=== PATIENT | female | born 1985 | race Caucasian/White ===

== ENCOUNTER 2017-02-26 13:55 | Emergency (ER) | payer OTHER ==
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
[~2017-02-26 13:55] MED LIST: BACTRIM DS TABL1 TA1 PO; DIAZEPAM10 MG PO; DIMETAPP COLD237 ML PO; E-MYCIN250 MG PO; IBUPROFEN PO; IBUPROFEN800 MG PO; KEFLEX PO; LEVAQUIN PO; LORTAB 101 TAB 10/5 PO; LORTAB 7.5-5001 TAB PO; MOTRIN600 M1 PO; NAPROSYN500 MG PO; NO MEDICATIONS; PAXIL PO; PREDNISONE10 MG/DOSE PO; PRENATAL1 TA1 PO; PROMETHAZINE W118 M1 PO; PROVERA10 MG PO; VALIUM10 MG PO; VICODIN PO; XANAX0.5 M1
== END 2017-02-26 15:35 | disposition home or self-care (01) ==
LOC: SED 13:55
DX: S83.91XA Sprain of unspecified site of right knee, initial encounter (principal); F17.200 Nicotine dependence, unspecified, uncomplicated; X58.XXXA Exposure to other specified factors, initial encounter; Y92.9 Unspecified place or not applicable
CPT/HCPCS: 29505; 73562; 99283

== ENCOUNTER 2017-04-17 17:25 | Emergency (ER) | payer OTHER ==
[2017-04-18] MEDS ORDERED: NO MEDICATIONS (04:09)
== END 2017-04-17 18:15 | disposition left against medical advice (07) ==
LOC: CED 17:25
DX: Z53.21 Procedure and treatment not carried out due to patient leaving prior to being seen by health care provider (principal)
CPT/HCPCS: J1170; J1200; J3010

== ENCOUNTER 2017-04-17 21:19 | Observation (INO) | payer OTHER ==
--- NOTE | ~2017-04-17 | EKG ---
PATIENT: VALERI CACERES UNIT #: [id number] Ventricular Rate: 58 BPM Atrial Rate: 58 BPM P-R Interval: 124 ms QRS Duration: 90 ms Q-T Interval: 422 ms QTC Calculation(Bezet): 414 ms P [place]: 45 degrees Calculated R [place]: 52 degrees Calculated T [place]: 42 degrees Diagnosis Line: Sinus bradycardia Diagnosis Line: Otherwise normal ECG Diagnosis Line: When compared with ECG of 11-OCT-2016 15:05, Diagnosis Line: No significant change was found Diagnosis Line: Confirmed by NELSON FERNÁNDEZ MD ([id number]) on 04/18/2017 Diagnosis Line: 8:37:26 PM INTERPRETING MD: JOLENE MCNEAL
--- NOTE | ~2017-04-17 | OR ---
Unit #: [id number] #: [id number] Patient: VALERI CACERES [id number] [facility] [address]. [place], [place] [address] [id number] I MR#: [id number] NAME: VALERI CACERES ROOM: 456 Date of Procedure: 04/18/2017 Admission Date: 04/18/2017 Surgeon: Xavier Hendricks M.D. : 1985 Attending Physician: Xavier Hendricks M.D. Primary Care Physician: Vlad Vega M.D. OPERATIVE REPORT PREOPERATIVE DIAGNOSIS Acute cholecystitis. POSTOPERATIVE DIAGNOSIS Hydrops of the gallbladder. PROCEDURE PERFORMED Laparoscopic cholecystectomy. ANESTHESIA General endotracheal anesthesia. ESTIMATED BLOOD LOSS 20 mL. INDICATIONS FOR PROCEDURE Ms. Caceres is a 31-year-old female, who presented to the ER with right upper quadrant pain and was found to have acute cholecystitis. She was admitted and started on IV antibiotics and scheduled for surgery today. Preoperative liver chemistries were normal. DESCRIPTION OF PROCEDURE The patient was admitted to [facility], positively identified, and transported from her hospital room to the operating room, and after induction of general endotracheal anesthesia, she was prepped and draped in usual sterile fashion. A 5-mm supraumbilical incision was made. Veress needle was placed. Pneumoperitoneum was created. Then, a 5-mm trocar was placed. Laparoscope was introduced into the peritoneal cavity. Under direct vision, the epigastric and lateral ports were placed. The gallbladder was markedly distended and inflamed, but there was no gangrene. It was quite intrahepatic; however, the gallbladder was grasped and elevated. The infundibulum was identified and retracted laterally and the triangle of Calot was dissected out clearly identifying the cystic duct, gallbladder, and cystic duct-common duct junction. A single clip was placed in the cystic duct centered to gallbladder and three clips were placed distally and the cystic duct was sharply divided. Posteriorly, the cystic artery was dissected free from the right hepatic. It was doubly clipped proximally and distally and divided. I then dissected the gallbladder out of the liver bed and it was a difficult dissection, because the gallbladder was quite intrahepatic, but I was able to dissected out without spillage of bile or stones. The gallbladder was placed into an EndoCatch bag and brought out through the epigastric port. Unit #: [id number] #: [id number] Patient: VALERI CACERES On evaluating the gallbladder Ex Vivo, there was hydrops of the gallbladder. There was adequate hemostasis. The clips were well positioned. The epigastric fascial defect was closed with the neoClose device and the closure was airtight. I then reduced the pneumoperitoneum as I removed the laparoscope and trocars. 0.5% Marcaine with epinephrine was infiltrated into each trocar site. The skin was closed with 4-0 Monocryl subcuticular closure and Dermabond skin adhesive. Sponges and needle counts were correct x3. The patient tolerated the procedure well and was transported to recovery in stable condition. There was no family available to discuss the findings with after surgery. Dictated by... Odalys Carter/miller TD: 04/18/2017 19:22 JOB #: [id number] OPERATIVE REPORT Page 1 of 1 X Xavier Hendricks MD PROCEDURE OPERATIVE NOTE
--- NOTE | ~2017-04-17 | CT2 ---
[facility] A Service of [facility] RADIOLOGY TEXT RESULTS PATIENT: VALERI CACERES LOCATION: [facility] 456-01 : 83 UNIT #: [id number] AGE: [address]: Xavier Hendricks MD SEX: F ORDER DR: [id number] [place] [id number] I MR#: [id number] Acc #: [id number] NAME: VALERI CACERES : 1985 SEX: F STUDY DATE/TIME: 04/17/2017 23:00 UNIT: SEDOF ROOM: [id number] STUDY DESCRIPTION: CT Abd and Pelv W Cont Attending Physician: Xavier Hendricks M.D. Ordering Physician: Jaime Ruth P.A.-C. Primary Care Physician: Vlad Vega M.D. MEDICAL IMAGING REPORT This report is preliminary unless electronic signature is present. EXAM CT abdomen and pelvis with contrast INDICATION Right upper quadrant abdominal and right flank pain for the past 3 days. PROCEDURE Contrast-enhanced CT of the abdomen and pelvis. This CT exam was performed with one or more of the following radiation dose reduction techniques: automatic exposure control, adjustment of mA and/or kV according to patient size, and iterative reconstruction. COMPARISON 06/13/2010 FINDINGS ABDOMEN WITH CONTRAST: Included lung bases clear. There are a few stones in the gallbladder, including a 1.8 cm stone at the neck of the gallbladder. There is mild gallbladder wall thickening and a trace amount of pericholecystic fluid. No common duct dilation. The spleen, kidneys, adrenal glands, pancreas are unremarkable. Bowel loops are nondilated. Moderate colonic stool. Normal appendix. There is no hydronephrosis. PELVIS WITH CONTRAST: No pelvic mass or fluid. No aggressive-appearing bone lesion. IMPRESSION Suspected early or mild acute cholecystitis. There are several stones in [facility] A Service of [facility] RADIOLOGY TEXT RESULTS PATIENT: VALERI CACERES LOCATION: C4 456-01 : 83 UNIT #: [id number] AGE: [address]: Xavier Hendricks MD SEX: F ORDER DR: the gallbladder including a 1.8 cm stone in the neck of the gallbladder. Dictated by... Reynaldo Saleh M.D. THIS IS AN ELECTRONICALLY VERIFIED REPORT Reynaldo Saleh M.D. at 04/18/2017 10:25 PM EED/lisa TD: 04/18/2017 01:14 JOB #: [id number] MEDICAL IMAGING REPORT Page 1 of 1
--- NOTE | ~2017-04-17 | DS ---
Unit #: [id number] #: [id number] Patient: VALERI CACERES [id number] [address] [address] [id number] I MR#: [id number] NAME: VALERI CACERES ROOM: 456 Age: 31 Sex: F Admission Date: 04/18/2017 : 1985 Discharge Date: 04/19/2017 Attending Physician: Xavier Hendricks M.D. Primary Care Physician: Vlad Vega M.D. DISCHARGE SUMMARY HISTORY/HOSPITAL COURSE Ms. Caceres is a 31-year-old female with known cholelithiasis. She presented to the emergency room with increasing right upper quadrant pain radiating to the back. Radiologic evaluation was consistent with early acute cholecystitis. She was admitted to the hospital and started on IV antibiotics. The following morning she was taken to the operating room, where she underwent an uncomplicated laparoscopic cholecystectomy. She is hemodynamically stable postoperatively and her laboratories are unremarkable. Her abdomen is soft and has just the expected postoperative tenderness. DISCHARGE INSTRUCTIONS 1. The patient will be able to be discharge home in stable condition today. 2. She can undergo diet and activity as tolerated. 3. She may shower. 4. Use a laxative as needed. 5. She is to call the office at [phone] for a follow-up appointment. 6. A prescription for Tramadol was left for postoperative pain control. 7. I also completed her medical appointment verification certificate as required by the administrative office at the courts because the patient is in court ordered drug rehab. The patient understood these instructions and will be discharged home in stable condition. Dictated by... Odalys Carter/pamela TD: 04/19/2017 12:24 JOB #: [id number] Unit #: [id number] #: [id number] Patient: VALERI CACERES DISCHARGE SUMMARY Page 1 of 1 X Xavier Hendricks MD DISCHARGE SUMMARY
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
[2017-04-17 22:24] LABS: URINE SOURCE CLEAN CATCH
[2017-04-17 22:27] LABS: URINE APPEARANCE HAZY; URINE BILIRUBIN NEG (NEG); URINE BLOOD NEG (NEG); URINE COLOR YELLOW; URINE GLUCOSE NEG (NORM); URINE KETONE NEG (NEG); URINE LEUKOCYTE ESTERASE NEG (NEG); URINE NITRATE NEG (NEG); URINE PH 7.5 (5-8); URINE PROTEIN NEG (NEG); URINE UROBILINOGEN 0.2 MG/DL (NORM)
[2017-04-17 22:29] LABS: BASOPHIL# 0.1 X10e3 (0-0.3); BASOPHIL% 0.8 % (0-2.5); EOSINOPHIL# 0.1 X10e3 (0-0.7); EOSINOPHIL% 0.8 % (0.0-7.0); HEMATOCRIT 42.8 % (35.0-45.0); HEMOGLOBIN 14.3 gm/dL (12.0-16.0); LYMPHOCYTE# 3.1 X10e3 (1.0-3.5); LYMPHOCYTE% 21.8 % (17.0-45.0); MEAN CELL VOLUME 85.3 FL (83-96); MEAN CORPUSCULAR HEMOGLOBIN 28.5 PG (28-34); MEAN CORPUSCULAR HGB CONC 33.3 g/dL (30-36); MEAN PLATELET VOLUME 10.1 FL (6.5-11.5); MICRO INDICATED? NO; MONOCYTE# 0.7 X10e3 (0-1.0); NEUTROPHIL# 10.3 X10e3 (1.5-7.1); NEUTROPHIL% 71.6 % (40-75); PLATELET COUNT 251 X10e3 (140-420); RED BLOOD COUNT 5.01 X10e (3.90-5.30); RED CELL DISTRIBUTION WIDTH 14.9 % (11.0-15.5); WHITE BLOOD COUNT 14.4 X10e3 (4.0-10.5)
[2017-04-17 22:32] LABS: DIFF IND NO
[2017-04-17 22:37] LABS: AMPHETAMINE NEG (NEG); BARBITURATES NEG (NEG); BENZODIAZEPINES NEG (NEG); COCAINE NEG (NEG); MARIJUANA NEG (NEG); OPIATES NEG (NEG); TRICYCLIC ANTIDEPRESSANTS NEG (NEG); U METHADONE NEG (NEG)
[2017-04-17 22:45] LABS: ALKALINE PHOSPHATASE 71 U/L (32-92); ALT (SGPT) 16 U/L (10-40); AST (SGOT) 18 U/L (10-42); BILIRUBIN, DIRECT <0.1 mg/dL (0.0-0.2); BILIRUBIN,INDIRECT 0.5 mg/dL (0.0-0.9); BILIRUBIN,TOTAL 0.6 mg/dL (0.2-2.0); BLOOD UREA NITROGEN 11 mg/dL (9-23); BUN/CREATININE RATIO 18.33; CALCIUM SERUM 9.1 mg/dL (8.4-10.2); CARBON DIOXIDE 27 mmol/L (22-31); CHLORIDE 102 mmol/L (100-111); CREATININE SERUM 0.6 mg/dL (0.6-1.4); GLOM FILT RATE Estimated 119.8 mL/min (>60); GLUCOSE FASTING 101 mg/dL (70-110); LIPASE 36 U/L (22-51); POTASSIUM 4.1 mmol/L (3.5-5.1); PROTEIN TOTAL SERUM 7.4 g/dL (6.0-8.3); SODIUM 137 mmol/L (135-145)
[2017-04-18] MEDS ORDERED: NO MEDICATIONS (04:09)
[2017-04-19 03:20] LABS: HEMATOCRIT 41.2 % (35.0-45.0); HEMOGLOBIN 13.5 gm/dL (12.0-16.0); MEAN CELL VOLUME 86.4 FL (83-96); MEAN CORPUSCULAR HEMOGLOBIN 28.4 PG (28-34); MEAN CORPUSCULAR HGB CONC 32.9 g/dL (30-36); MEAN PLATELET VOLUME 10.6 FL (6.5-11.5); RED BLOOD COUNT 4.77 X10e (3.90-5.30); WHITE BLOOD COUNT 12.9 X10e3 (4.0-10.5)
[2017-04-19 03:45] LABS: ALBUMIN SERUM 3.5 g/dL (3.5-5.0); BILIRUBIN,TOTAL 0.4 mg/dL (0.2-2.0); BUN/CREATININE RATIO 22.85; CALCIUM SERUM 8.8 mg/dL (8.4-10.2); CREATININE SERUM 0.7 mg/dL (0.6-1.4); GLOM FILT RATE Estimated 113.8 mL/min (>60); POTASSIUM 4.4 mmol/L (3.5-5.1); PROTEIN TOTAL SERUM 6.3 g/dL (6.0-8.3)
[2017-04-19] MEDS ORDERED: ULTRAM PO (10:46)
== END 2017-04-19 13:54 | disposition home or self-care (01) ==
LOC: SED 21:19 → C4B 04-18 00:23 → SEDOF 04-18 00:23 → SED 04-18 00:23 → C4B 04-18 02:28 → SEDOF 04-18 03:10 → C4B 04-19 13:54
PROVIDERS: Physician Assistant; Specialist
PROC: 0FT44ZZ Resection of Gallbladder, Percutaneous Endoscopic Approach (ICD-10-PCS; principal; 2017-04-18 11:00)
DX: K80.10 Calculus of gallbladder with chronic cholecystitis without obstruction (principal); K82.1 Hydrops of gallbladder; F17.200 Nicotine dependence, unspecified, uncomplicated; B19.20 Unspecified viral hepatitis C without hepatic coma; Z79.899 Other long term (current) drug therapy; G83.34 Monoplegia, unspecified affecting left nondominant side; Z86.73 Personal history of transient ischemic attack (TIA), and cerebral infarction without residual deficits; Z87.898 Personal history of other specified conditions; Z88.1 Allergy status to other antibiotic agents; Z88.0 Allergy status to penicillin; Z91.018 Allergy to other foods
CPT/HCPCS: 36415; 74177; 80048; 80053; 80076; 80307; 81003; 83690; 84703; 85025; 85027; 88304; 93005; 96361; 96372; 96374; 96375; 96376; 99285; G0378; J0131; J0330; J1650; J1885; J2250; J2270; J2405; J2710; J3010; J3243; Q9967

== ENCOUNTER 2017-04-25 00:04 | Emergency (ER) | payer OTHER ==
[~2017-04-25 00:04] MED LIST changes: +ULTRAM PO
== END 2017-04-25 03:38 | disposition home or self-care (01) ==
LOC: CED 00:04
DX: T74.21XA Adult sexual abuse, confirmed, initial encounter (principal); Z48.01 Encounter for change or removal of surgical wound dressing; F17.210 Nicotine dependence, cigarettes, uncomplicated; Z88.0 Allergy status to penicillin; Z88.1 Allergy status to other antibiotic agents; Z86.19 Personal history of other infectious and parasitic diseases; Z90.49 Acquired absence of other specified parts of digestive tract
CPT/HCPCS: 99285

== ENCOUNTER 2017-05-15 10:32 | Emergency (ER) | payer OTHER ==
--- NOTE | ~2017-05-15 | CR142 ---
[facility] A Service of [facility] RADIOLOGY TEXT RESULTS PATIENT: VALERI CACERES LOCATION: SED : 83 UNIT #: [id number] AGE: [address]: Teagan Pineda SEX: F ORDER DR: [id number] [address] [address] [id number] E MR#: [id number] Acc #: [id number] NAME: VALERI CACERES : 1985 SEX: F STUDY DATE/TIME: 05/15/2017 UNIT: SED ROOM: STUDY DESCRIPTION: CR Hand Min 3 Views Rt Attending Physician: Teagan Pineda Pa-C Ordering Physician: Manuel Horner M.D. Primary Care Physician: No Primary Care Physician MEDICAL IMAGING REPORT This report is preliminary unless electronic signature is present. EXAM Right hand 3 views 05/15/2017 1040 hours HISTORY 31-year-old woman who fell last night, landing on hand. Hand pain around fourth and fifth digits. COMPARISON 05/30/2014 FINDINGS AP, lateral, and oblique views demonstrate dorsal soft tissue swelling over the metacarpals. There is a nondisplaced fracture obliquely oriented through the distal aspect of the fifth metacarpal that appears acute. No definite intraarticular extension is seen. No fourth metacarpal fracture is seen. IMPRESSION There is an acute nondisplaced fracture obliquely oriented through the distal fifth metacarpal without definite intraarticular extension. There is no displacement or angulation. The fifth metacarpal appears short, but is unchanged from 05/30/2014. Dictated by... Teresa Mares M.D. THIS IS AN ELECTRONICALLY VERIFIED REPORT Teresa Mares M.D. at 05/15/2017 2:32 PM ANTHONY/william [facility] A Service of [facility] RADIOLOGY TEXT RESULTS PATIENT: VALERI CACERES LOCATION: SED : 83 UNIT #: [id number] AGE: [address]: Teagan Pineda SEX: F ORDER DR: TD: 05/15/2017 12:53 JOB #: [id number] MEDICAL IMAGING REPORT Page 1 of 1
[2017-05-15] MEDS ORDERED: ULTRAM PO (11:11)
== END 2017-05-15 11:14 | disposition home or self-care (01) ==
LOC: SED 10:32
DX: S62.306A Unspecified fracture of fifth metacarpal bone, right hand, initial encounter for closed fracture (principal); R56.9 Unspecified convulsions; F17.210 Nicotine dependence, cigarettes, uncomplicated; W01.0XXA Fall on same level from slipping, tripping and stumbling without subsequent striking against object, initial encounter; Y92.410 Unspecified street and highway as the place of occurrence of the external cause
CPT/HCPCS: 29260; 73130; 99283

== ENCOUNTER 2017-06-17 22:59 | Emergency (ER) | payer OTHER ==
[~2017-06-17] VITALS: Ht 172.7 cm; Wt 81.6 kg
[2017-06-18 00:06] LABS: BASOPHIL# 0.1 X10e3 (0-0.3); BASOPHIL% 1.2 % (0-2.5); EOSINOPHIL# 0.3 X10e3 (0-0.7); EOSINOPHIL% 2.5 % (0.0-7.0); HEMATOCRIT 39.3 % (35.0-45.0); HEMOGLOBIN 13.6 gm/dL (12.0-16.0); LYMPHOCYTE# 2.9 X10e3 (1.0-3.5); LYMPHOCYTE% 27.3 % (17.0-45.0); MEAN CELL VOLUME 84.9 FL (83-96); MEAN CORPUSCULAR HEMOGLOBIN 29.4 PG (28-34); MEAN CORPUSCULAR HGB CONC 34.7 g/dL (30-36); MEAN PLATELET VOLUME 9.7 FL (6.5-11.5); MONOCYTE# 0.8 X10e3 (0-1.0); MONOCYTE% 7.2 % (3.0-12.0); NEUTROPHIL# 6.5 X10e3 (1.5-7.1); NEUTROPHIL% 61.8 % (40-75); PLATELET COUNT 367 X10e3 (140-420); RED BLOOD COUNT 4.63 X10e (3.90-5.30); RED CELL DISTRIBUTION WIDTH 14.3 % (11.0-15.5); WHITE BLOOD COUNT 10.5 X10e3 (4.0-10.5)
[2017-06-18 00:08] LABS: DIFF IND NO
[2017-06-18 00:22] LABS: ALBUMIN SERUM 3.5 g/dL (3.5-5.0); BILIRUBIN, DIRECT 0.1 mg/dL (0.0-0.2); BILIRUBIN,INDIRECT 0.4 mg/dL (0.0-0.9); BILIRUBIN,TOTAL 0.5 mg/dL (0.2-2.0); BUN/CREATININE RATIO 13.33; CALCIUM SERUM 8.6 mg/dL (8.4-10.2); CREATININE SERUM 0.6 mg/dL (0.6-1.4); GLOM FILT RATE Estimated 119.8 mL/min (>60); POTASSIUM 3.7 mmol/L (3.5-5.1); PROTEIN TOTAL SERUM 7.3 g/dL (6.0-8.3)
== END 2017-06-18 01:27 | disposition home or self-care (01) ==
LOC: SED 22:59
PROVIDERS: Physician Assistant
DX: L02.415 Cutaneous abscess of right lower limb (principal); Z90.49 Acquired absence of other specified parts of digestive tract; Z88.0 Allergy status to penicillin; F17.210 Nicotine dependence, cigarettes, uncomplicated; Z88.1 Allergy status to other antibiotic agents
CPT/HCPCS: 10060; 36415; 80048; 80076; 85025; 87070; 87077; 87186; 87205; 96360; 99283